=== PATIENT | female | born 1965 | race Caucasian/White ===

== ENCOUNTER 2020-06-07 02:13 | Emergency (ER) | payer OTHER ==
[~2020-06-07] VITALS: Ht 165.1 cm; Wt 86.2 kg
[~2020-06-07 02:13] MED LIST: ACEASPCAF PO; ACYCLOVIR400 MG PO; ALBU90OI INH; AMOCLA875 PO; CEFD300 PO; CLAR500CR; Cipro500 MG PO; DEXL60CA3; Flagyl500 MG PO; KETO10 PO; LANSOPRAZOLE30 MG PO; LEVFLO500 PO; Norco 5-325 Ta1 EACH PO; ONDA4ODT MM; OXYACE5T PO; PRED20 PO; PRO-AIR; Protonix40 MG PO; Symbicort 16010.2 GM INH; Zofran4 MG PO; [UNRECOGNIZED DRUG - OTHER]
[2020-06-07 02:50] LABS: Calcium, Ionized (POC) 1.18 mmol/L (1.10-1.46); Chloride (POC) 101 mmol/L (98-108); Creatinine (POC) 1.3 mg/dL (0.6-1.0); Glucose (ISTAT POC) 149 mg/dL (70-99); Hemoglobin (POC) 13.9 g/dL (12.0-16.0); Potassium (POC) 3.5 mmol/L (3.5-5.5); Sodium (POC) 140 mmol/L (135-148); Total CO2 (POC) 26 mmol/L (21-32)
[2020-06-07 02:51] LABS: BASOPHILS ABSOLUTE AUTO 0.05 K/mm3 (0.00-0.23); BASOPHILS PERCENT AUTO 0 % (0-2); EOSINOPHILS ABSOLUTE AUTO 0.18 K/mm3 (0.00-0.68); EOSINOPHILS PERCENT AUTO 1 % (0-6); Hematocrit 41.2 % (33.0-51.0); Hemoglobin 14.2 g/dL (11.5-16.0); IMMATURE GRAN ABSOLUTE AUTO 0.04 K/mm3 (0.00-0.10); IMMATURE GRAN PERCENT AUTO 0 % (0-1); LYMPHOCYTES ABSOLUTE AUTO 1.29 K/mm3 (0.84-5.20); LYMPHOCYTES PERCENT AUTO 8 % (21-46); MONOCYTES ABSOLUTE AUTO 0.86 K/mm3 (0.16-1.47); MONOCYTES PERCENT AUTO 5 % (4-13); Mean Corpuscular HGB 31.9 pg (26.0-34.0); Mean Corpuscular HGB Conc 34.5 g/dL (31.5-36.5); Mean Corpuscular Volume 93 fL (80-100); Mean Platelet Volume 8.6 fL (9.1-12.4); NEUTROPHILS ABSOLUTE AUTO 13.58 K/mm3 (1.96-9.15); NEUTROPHILS PERCENT AUTO 85 % (41-73); Platelet Count 419 K/mm3 (150-400); RDW Coefficient Variation 13.9 % (11.7-14.2); RDW Standard Deviation 47.7 fL (35.1-46.3); Red Blood Cell Count 4.45 M/mm3 (3.80-5.20)
[2020-06-07 03:11] LABS: PCO2 Arterial 36.1 mmHg (35-45); PO2 Arterial 66.8 mmHg (80-100); pH Blood Arterial 7.42 (7.35-7.45)
[2020-06-07 03:12] LABS: Alanine Aminotransfer (ALT/SGP 31 U/L (12-78); Albumin, Blood 3.9 g/dL (3.4-5.0); Alk Phos 67 U/L (50-136); Anion Gap 7 mmol/L (6-16); Aspartate Aminotrans (AST/SGOT 22 U/L (12-37); Bilirubin, Total 0.2 mg/dL (0.1-1.0); Blood Urea Nitrogen 18 mg/dL (8-24); CO2, Blood 29 mmol/L (21-32); Calcium, Blood 10.2 mg/dL (8.5-10.1); Chloride, Blood 104 mmol/L (98-108); Creatinine, Blood 1.29 mg/dL (0.40-1.00); Globulin, Blood 3.8 g/dL (2.2-4.0); Glomerular Filtration Rate 46 (60-); Glucose, Blood 144 mg/dL (70-99); Potassium, Blood 3.4 mmol/L (3.5-5.5); Sodium, Blood 140 mmol/L (136-145); Total Protein, Blood 7.7 g/dL (6.4-8.2); Troponin I <0.015 ng/mL (0.000-0.040)
[2020-06-07] MEDS ORDERED: ACYCLOVIR400 MG PO (04:33)
[2020-06-07] MEDS ORDERED: ANORO ELLIPTA1 EAC1 INH (04:33)
[2020-06-07 04:48] LABS: Source, Urine Catheter
[2020-06-07 04:54] LABS: Bilirubin, Urine Neg (Neg); Blood, Urine Neg (Neg); Glucose Qualitative, Urine Neg (Neg); Ketones, Urine Neg (Neg); Leukocyte Esterase, Urine 1+ (Neg); Nitrite, Urine Neg (Neg); Protein, Urine Neg (Neg); Specific Gravity, Urine 1.005 (1.003-1.022); Urobilinogen, Urine NORM (Normal)
[2020-06-07 05:01] LABS: Appearance, Urine Clear (Clear); Bacteria Rare /hpf; Color, Urine Yellow (P-Yellow); Red Blood Cells, Urine Not Seen /hpf (0-2); Squamous Epithelial Cells Few /hpf (Few); White Blood Cells, Urine Rare /hpf (0-5)
[2020-06-07] MEDS ORDERED: AMOCLA875 PO (05:15)
== END 2020-06-07 05:30 | disposition home or self-care (01) ==
LOC: ER 02:13
PROVIDERS: Emergency Medicine
DX: K52.9 Noninfective gastroenteritis and colitis, unspecified (principal); F17.210 Nicotine dependence, cigarettes, uncomplicated; Z79.51 Long term (current) use of inhaled steroids; Z88.1 Allergy status to other antibiotic agents; Z79.899 Other long term (current) drug therapy
CPT/HCPCS: 36415; 36600; 74176; 80047; 80053; 81001; 82803; 83605; 83690; 84484; 85014; 85025; 93005; 93010; 96374; 99284-25; J2405; J7030

== ENCOUNTER 2020-08-31 17:14 | Emergency (ER) | payer OTHER ==
[~2020-08-31] VITALS: Ht 160 cm; Wt 74.8 kg
[~2020-08-31 17:14] MED LIST changes: +ANORO ELLIPTA1 EAC1 INH
[2020-08-31] MEDS ORDERED: OMEP20ER PO (17:31)
[2020-08-31 17:33] LABS: BASOPHILS ABSOLUTE AUTO 0.05 K/mm3 (0.00-0.23); BASOPHILS PERCENT AUTO 0 % (0-2); EOSINOPHILS ABSOLUTE AUTO 0.37 K/mm3 (0.00-0.68); EOSINOPHILS PERCENT AUTO 2 % (0-6); Hematocrit 45.6 % (33.0-51.0); Hemoglobin 15.2 g/dL (11.5-16.0); IMMATURE GRAN ABSOLUTE AUTO 0.06 K/mm3 (0.00-0.10); IMMATURE GRAN PERCENT AUTO 0 % (0-1); LYMPHOCYTES ABSOLUTE AUTO 1.46 K/mm3 (0.84-5.20); LYMPHOCYTES PERCENT AUTO 8 % (21-46); MONOCYTES ABSOLUTE AUTO 1.76 K/mm3 (0.16-1.47); MONOCYTES PERCENT AUTO 10 % (4-13); Mean Corpuscular HGB 31.3 pg (26.0-34.0); Mean Corpuscular HGB Conc 33.3 g/dL (31.5-36.5); Mean Corpuscular Volume 94 fL (80-100); Mean Platelet Volume 8.6 fL (9.1-12.4); NEUTROPHILS PERCENT AUTO 80 % (41-73); Platelet Count 424 K/mm3 (150-400); RDW Coefficient Variation 13.3 % (11.7-14.2); RDW Standard Deviation 46.6 fL (35.1-46.3); Red Blood Cell Count 4.86 M/mm3 (3.80-5.20)
[2020-08-31 17:55] LABS: Alanine Aminotransfer (ALT/SGP 41 U/L (12-78); Albumin, Blood 4.1 g/dL (3.4-5.0); Albumin/Globulin Ratio 1.1 (0.8-1.8); Alk Phos 68 U/L (50-136); Anion Gap 5 mmol/L (6-16); Aspartate Aminotrans (AST/SGOT 36 U/L (12-37); Bilirubin, Total 0.2 mg/dL (0.1-1.0); Blood Urea Nitrogen 19 mg/dL (8-24); Bun/Creatinine Ratio 21.8 (12.0-20.0); CO2, Blood 26 mmol/L (21-32); Calcium, Blood 9.4 mg/dL (8.5-10.1); Chloride, Blood 110 mmol/L (98-108); Creatinine, Blood 0.87 mg/dL (0.40-1.00); Globulin, Blood 3.6 g/dL (2.2-4.0); Glomerular Filtration Rate >60 (60-); Glucose, Blood 108 mg/dL (70-99); Potassium, Blood 3.9 mmol/L (3.5-5.5); Sodium, Blood 141 mmol/L (136-145); Total Protein, Blood 7.7 g/dL (6.4-8.2); Troponin I <0.015 ng/mL (0.000-0.040)
[2020-08-31] MEDS ORDERED: ONDA4ODT MM (19:35)
== END 2020-08-31 19:46 | disposition home or self-care (01) ==
LOC: ER 17:14
PROVIDERS: Emergency Medicine
DX: K52.9 Noninfective gastroenteritis and colitis, unspecified (principal); E86.0 Dehydration; R55 Syncope and collapse; F17.210 Nicotine dependence, cigarettes, uncomplicated; Z88.1 Allergy status to other antibiotic agents; Z79.899 Other long term (current) drug therapy
CPT/HCPCS: 71045; 74177; 80053; 83880; 84484; 85025; 93005; 93010; 96361; 96374-59; 99285-25; A9270; J2405; J7030; Q9967

== ENCOUNTER 2020-10-13 07:04 | Emergency (ER) | payer OTHER ==
[~2020-10-13] VITALS: Ht 160 cm; Wt 72.6 kg
[~2020-10-13 07:04] MED LIST changes: +OMEP20ER PO
[2020-10-13] MEDS ORDERED: ASPI81CH PO (07:19)
[2020-10-13 07:55] LABS: BASOPHILS ABSOLUTE AUTO 0.05 K/mm3 (0.00-0.23); BASOPHILS PERCENT AUTO 0 % (0-2); EOSINOPHILS ABSOLUTE AUTO 0.37 K/mm3 (0.00-0.68); EOSINOPHILS PERCENT AUTO 2 % (0-6); Hematocrit 41.4 % (33.0-51.0); Hemoglobin 13.8 g/dL (11.5-16.0); IMMATURE GRAN ABSOLUTE AUTO 0.07 K/mm3 (0.00-0.10); IMMATURE GRAN PERCENT AUTO 0 % (0-1); LYMPHOCYTES ABSOLUTE AUTO 1.14 K/mm3 (0.84-5.20); LYMPHOCYTES PERCENT AUTO 6 % (21-46); MONOCYTES ABSOLUTE AUTO 1.07 K/mm3 (0.16-1.47); MONOCYTES PERCENT AUTO 5 % (4-13); Mean Corpuscular HGB Conc 33.3 g/dL (31.5-36.5); Mean Corpuscular Volume 96 fL (80-100); Mean Platelet Volume 8.6 fL (9.1-12.4); NEUTROPHILS ABSOLUTE AUTO 16.94 K/mm3 (1.96-9.15); NEUTROPHILS PERCENT AUTO 86 % (41-73); Platelet Count 401 K/mm3 (150-400); RDW Coefficient Variation 14.1 % (11.7-14.2); RDW Standard Deviation 50.4 fL (35.1-46.3); Red Blood Cell Count 4.31 M/mm3 (3.80-5.20); White Blood Cell Count 19.64 K/mm3 (4.00-11.30)
[2020-10-13 08:23] LABS: Alanine Aminotransfer (ALT/SGP 36 U/L (12-78); Albumin, Blood 3.3 g/dL (3.4-5.0); Albumin/Globulin Ratio 0.9 (0.8-1.8); Alk Phos 53 U/L (50-136); Anion Gap 10 mmol/L (6-16); Aspartate Aminotrans (AST/SGOT 24 U/L (12-37); Bilirubin, Total 0.3 mg/dL (0.1-1.0); Blood Urea Nitrogen 20 mg/dL (8-24); Bun/Creatinine Ratio 20.3 (12.0-20.0); CO2, Blood 21 mmol/L (21-32); Calcium, Blood 9.5 mg/dL (8.5-10.1); Chloride, Blood 109 mmol/L (98-108); Creatinine, Blood 0.99 mg/dL (0.40-1.00); Globulin, Blood 3.8 g/dL (2.2-4.0); Glomerular Filtration Rate >60 (60-); Glucose, Blood 116 mg/dL (70-99); Potassium, Blood 4.2 mmol/L (3.5-5.5); Sodium, Blood 140 mmol/L (136-145); Total Protein, Blood 7.1 g/dL (6.4-8.2); Troponin I <0.015 ng/mL (0.000-0.040)
[2020-10-13 08:39] LABS: Source, Urine Clean Catch
[2020-10-13 08:48] LABS: Bilirubin, Urine Neg (Neg); Blood, Urine 2+ (Neg); Glucose Qualitative, Urine Neg (Neg); Ketones, Urine 1+ (Neg); Leukocyte Esterase, Urine 1+ (Neg); Nitrite, Urine Neg (Neg); Protein, Urine 3+ (Neg); Specific Gravity, Urine 1.015 (1.003-1.022); Urobilinogen, Urine 1+ (Normal); pH, Urine 6.5 (5.0-8.0)
[2020-10-13 08:54] LABS: Appearance, Urine Hazy (Clear); Color, Urine Yellow (P-Yellow)
[2020-10-13 08:56] LABS: Bacteria Many /hpf; Red Blood Cells, Urine 0-2 /hpf (0-2); Squamous Epithelial Cells Few /hpf (Few)
[2020-10-13 08:57] LABS: Amorphous Light (0-Heavy); Mucus Light (0-Heavy)
[2020-10-13] MEDS ORDERED: PROM25 PO (09:47)
[2020-10-13] MEDS ORDERED: NITR100CA PO (09:47)
== END 2020-10-13 09:55 | disposition home or self-care (01) ==
LOC: ER 07:04
PROVIDERS: Emergency Medicine
DX: R10.9 Unspecified abdominal pain (principal); R11.2 Nausea with vomiting, unspecified; R19.7 Diarrhea, unspecified; F17.210 Nicotine dependence, cigarettes, uncomplicated; Z79.82 Long term (current) use of aspirin
CPT/HCPCS: 36415; 74022; 80053; 81001; 83690; 84484; 85025; 87086; 93005; 93010; 96361; 96374; 99285-25; A9270; J2405; J7120

== ENCOUNTER 2020-12-26 08:23 | Day surgery (SDC) | payer OTHER ==
[~2020-12-26] VITALS: Ht 160 cm; Wt 67.5 kg
[~2020-12-26 08:23] MED LIST changes: +ASPI81CH PO; +NITR100CA PO; +PROM25 PO
[2020-12-26] MEDS ORDERED: ESOM20 (08:57)
[2020-12-26] MEDS ORDERED: [UNRECOGNIZED DRUG - OTHER] (08:58)
[2020-12-26] MEDS ORDERED: ALBU90OI6 (08:58)
[2020-12-26] MEDS ORDERED: AMOCLA250S (08:58)
== END 2020-12-26 10:25 | disposition home or self-care (01) ==
LOC: ORSCSDS 08:23
PROVIDERS: Internal Medicine Gastroenterology
PROC: 0DBP8ZX Excision of Rectum, Via Natural or Artificial Opening Endoscopic, Diagnostic (ICD-10-PCS; principal; 2020-12-26 09:45)
PROC: 0DBE8ZX Excision of Large Intestine, Via Natural or Artificial Opening Endoscopic, Diagnostic (ICD-10-PCS; principal; 2020-12-26 09:45)
DX: R19.7 Diarrhea, unspecified (principal); R93.89 Abnormal findings on diagnostic imaging of other specified body structures; K52.831 Collagenous colitis; K62.1 Rectal polyp; K64.4 Residual hemorrhoidal skin tags; E78.00 Pure hypercholesterolemia, unspecified; Z79.899 Other long term (current) drug therapy
CPT/HCPCS: 88305; J2704; J7120

== ENCOUNTER 2021-05-11 07:31 | Inpatient (IN) | payer OTHER ==
[~2021-05-11] VITALS: Ht 160 cm; Wt 69.4 kg
[~2021-05-11 07:31] MED LIST changes: +ALBU90OI6 INH; +AMOCLA250S; +ESOM20; +[UNRECOGNIZED DRUG - OTHER]
[2021-05-11 07:48] LABS: BASOPHILS ABSOLUTE AUTO 0.05 K/mm3 (0.00-0.23); BASOPHILS PERCENT AUTO 0 % (0-2); EOSINOPHILS ABSOLUTE AUTO 0.26 K/mm3 (0.00-0.68); EOSINOPHILS PERCENT AUTO 1 % (0-6); Hematocrit 37.8 % (33.0-51.0); Hemoglobin 13.1 g/dL (11.5-16.0); IMMATURE GRAN ABSOLUTE AUTO 0.11 K/mm3 (0.00-0.10); IMMATURE GRAN PERCENT AUTO 1 % (0-1); LYMPHOCYTES PERCENT AUTO 12 % (21-46); MONOCYTES ABSOLUTE AUTO 0.73 K/mm3 (0.16-1.47); MONOCYTES PERCENT AUTO 4 % (4-13); Mean Corpuscular HGB 32.3 pg (26.0-34.0); Mean Corpuscular HGB Conc 34.7 g/dL (31.5-36.5); Mean Corpuscular Volume 93 fL (80-100); Mean Platelet Volume 8.6 fL (9.1-12.4); NEUTROPHILS ABSOLUTE AUTO 16.76 K/mm3 (1.96-9.15); NEUTROPHILS PERCENT AUTO 82 % (41-73); Platelet Count 418 K/mm3 (150-400); RDW Coefficient Variation 14.2 % (11.7-14.2); Red Blood Cell Count 4.05 M/mm3 (3.80-5.20); White Blood Cell Count 20.41 K/mm3 (4.00-11.30)
[2021-05-11 08:04] LABS: Alanine Aminotransfer (ALT/SGP 26 U/L (12-78); Albumin, Blood 3.1 g/dL (3.4-5.0); Albumin/Globulin Ratio 0.9 (0.8-1.8); Alk Phos 46 U/L (50-136); Anion Gap 7 mmol/L (6-16); Aspartate Aminotrans (AST/SGOT 18 U/L (12-37); Bilirubin, Total 0.4 mg/dL (0.1-1.0); Blood Urea Nitrogen 17 mg/dL (8-24); Bun/Creatinine Ratio 21.6 (12.0-20.0); CO2, Blood 27 mmol/L (21-32); Calcium, Blood 9.5 mg/dL (8.5-10.1); Chloride, Blood 106 mmol/L (98-108); Creatinine, Blood 0.79 mg/dL (0.40-1.00); Globulin, Blood 3.4 g/dL (2.2-4.0); Glomerular Filtration Rate >60 (60-); Glucose, Blood 107 mg/dL (70-99); Potassium, Blood 3.8 mmol/L (3.5-5.5); Sodium, Blood 140 mmol/L (136-145); Total Protein, Blood 6.5 g/dL (6.4-8.2)
[2021-05-11] MEDS ORDERED: BUDESONIDE1 MG/2 M5 INH (09:32)
[2021-05-11 09:59] LABS: SARS-Cov-2 (COVID-19) PCR, MMC NEGATIVE (NEGATIVE)
--- NOTE | 2021-05-11 11:33 | NUR ---
05/11/21 1133 Hannah Moreland PATIENT IS ON SCHEDULED ANTIBIOTICS.
--- NOTE | 2021-05-11 16:11 | NUR ---
1500- PT ARRIVED TO ROOM ON OWN BED, DROWSY BUT RESPONDS TO VERBAL STIMULI AND ANSWERS CORRECTLY. POST OP/EPIDURAL VS COMMENCED AND STABLE. EPIDURAL VISUALIZED AND WNL, DRESSING C/D/I. PT ABLE TO MOVE ALL FOUR LIMBS, RATES PAIN IN ABDOMENT AT 2-3/10; C/O PAIN IN HER NOSE AND BEHIND HER L EYE. NG TUBE AFFIXED TO L NARE, STRICT ORDERS TO LEAVE IN AND NOT MANIPULATE, INTERMITTENT LOW SUCTION. PT'S IN ROOM WITH PT. BED IN LOWEST POSITION, BED RAILS UP X 2, PT PROVIDED WITH CALL LIGHT, CRUTCHING CONTRACTOR BUTTON; PT AND PROVIDED WITH EDUCATION ON USE OF BOTH.
[2021-05-12 04:15] LABS: Hematocrit 39.1 % (33.0-51.0); Hemoglobin 13.5 g/dL (11.5-16.0); Mean Corpuscular HGB 31.8 pg (26.0-34.0); Mean Corpuscular HGB Conc 34.5 g/dL (31.5-36.5); Mean Corpuscular Volume 92 fL (80-100); Platelet Count 423 K/mm3 (150-400); RDW Coefficient Variation 14.3 % (11.7-14.2); RDW Standard Deviation 48.5 fL (35.1-46.3); Red Blood Cell Count 4.24 M/mm3 (3.80-5.20); White Blood Cell Count 24.28 K/mm3 (4.00-11.30)
[2021-05-12 04:34] LABS: BAND PERCENT MAN 13 % (0-8); BASOPHILS PERCENT MAN 0 % (0-2); EOSINOPHILS PERCENT MAN 0 % (0-6); LYMPHOCYTES ABSOLUTE MAN 1.69 K/mm3 (0.84-5.20); LYMPHOCYTES PERCENT MAN 7 % (21-46); MONOCYTES ABSOLUTE MAN 0.72 K/mm3 (0.16-1.47); MONOCYTES PERCENT MAN 3 % (4-13); NEUTROPHILS ABSOLUTE MAN 21.85 K/mm3 (1.96-9.15); SEG NEUTROPHILS PERCENT MAN 77 % (41-73); TOTAL CELLS COUNTED 100
[2021-05-12 04:41] LABS: Anion Gap 7 mmol/L (6-16); Blood Urea Nitrogen 13 mg/dL (8-24); Bun/Creatinine Ratio 15.5 (12.0-20.0); CO2, Blood 27 mmol/L (21-32); Chloride, Blood 105 mmol/L (98-108); Creatinine, Blood 0.84 mg/dL (0.40-1.00); Glomerular Filtration Rate >60 (60-); Glucose, Blood 132 mg/dL (70-99); Potassium, Blood 4.3 mmol/L (3.5-5.5); Sodium, Blood 139 mmol/L (136-145)
--- NOTE | 2021-05-12 07:06 | NUR ---
PT IS A/OX3. ABLE TO MAKE HER NEEDS KNOWN. MCCANN CATHETER PATENT, DRAINING CLEAR YELLOW URINE. DRNG BAG TO GRAVITY AND OFF FLOOR. MIDLINE INCISION WITH CHARLINE. CHARLINE WORKING WELL. BINDER IN PLACE. FENTANYL EPIDURAL IN PLACE. DRSG CDI. HOURLY VS/DERMATOME/DRSG CHECKS DONE. PT REMINDED TO USE EPIDURAL BUTTON FOR PAIN RELIEF. STRICT NPO. NGT TO RT NARE AND TO LIS. NO EFFLUENT IN CANNISTER. MEDICATED FOR NAUSEA PER EMAR.
--- NOTE | 2021-05-12 07:50 | NUR ---
PT REPORTING NAUSEA, GAVE PHENERGEN PER EMAR. ASKED SENSATION QUESTION BUT PT VERY SLEEPY. PT REPORTED THAT SHE HAD FULL SENSATION AT THAT TIME, KEPT FALLING ASLEEP WHILE QUESTIONS WERE BEING ASKED. VITALS TAKEN AT THAT TIME, OXYGEN SATURATION 96% ON ROOM AIR.
[2021-05-12 10:16] LABS: Hematocrit 32.6 % (33.0-51.0); Hemoglobin 11.1 g/dL (11.5-16.0)
[2021-05-12] MEDS ORDERED: BUDESONIDE EC3 M5 (10:34)
--- NOTE | 2021-05-12 11:14 | NUR ---
SPOKE WITH ANESTHESIOLOGIST. NOTIFIED HIM OF RAPID CALLED AND BLOOD PRESSURES T/O. ORDERS RECIEVED TO DECREASE RATE TO 4ML/HR. PT CURRENTLY REPORTS PAIN OF 1/10 AND DENIES NUMBNESS ANYWHERE.
--- NOTE | 2021-05-12 11:31 | NUR ---
PT CURRENTLY SLEEPING WITH RESPIRATIONS EVEN. SHE CONTINUES TO DENY PAIN SINCE RATE DROPPED TO 4ML/HR.
--- NOTE | 2021-05-12 11:53 | NUR ---
WENT INTO PT ROOM AT APPROX 0935 TO TAKE PT VITALS. PT STARTED COMPLAINING OF CHEST PAIN. VITALS TAKEN AND BP WAS 87/46. PT ALERT AT THAT TIME. CALLED [facility]COSTA RN TO COME TO RM. ANOTHER BP TAKEN, PT HYPOTENSIVE AND DIAPHORETIC. SPRAY DRIER OPERATOR HELPER CALLED TO COME TO RM. PT NON-RESPONSIVE, RAPID RESPONSE CALLED. EKG DONE AT THIS TIME. DR NOTIFIED AT THIS TIME, HOSPITALIST CONSULT CALLED MD TO ROOM.
[2021-05-12 15:40] LABS: Hematocrit 30.1 % (33.0-51.0); Hemoglobin 10.6 g/dL (11.5-16.0)
--- NOTE | 2021-05-12 17:26 | NUR ---
SHIFT SUMMARY POD1 EX LAP, CONVERTED TO OPEN. SINCE RAPID RESPONSE, PT HAS HAD STABLE VITAL SIGNS. ALERT AND ORIENTED BUT SLEEPY. EPIDERAL IN PLACE FOR PAIN MANAGEMENT. VITAL SIGNS STABLE. MIDLINE CHARLINE DRESSING C/D/I. BILATERAL SCDS IN PLACE. TELE MONITOR ON. POWER GLIDE PLACED IN UPPER RIGHT ARM. MCCANN PATENT DRAINING CLEAR YELLOW URINE. TRENDING LACTIC LEVELS ARE BEING DRAWN. WILL REPORT TO ONCOMING RN.
[2021-05-12 21:47] LABS: Hematocrit 27.6 % (33.0-51.0); Hemoglobin 9.9 g/dL (11.5-16.0)
[2021-05-13 04:43] LABS: BASOPHILS ABSOLUTE AUTO 0.03 K/mm3 (0.00-0.23); BASOPHILS PERCENT AUTO 0 % (0-2); EOSINOPHILS ABSOLUTE AUTO 0.04 K/mm3 (0.00-0.68); EOSINOPHILS PERCENT AUTO 0 % (0-6); Hematocrit 25.6 % (33.0-51.0); Hemoglobin 8.7 g/dL (11.5-16.0); IMMATURE GRAN ABSOLUTE AUTO 0.08 K/mm3 (0.00-0.10); IMMATURE GRAN PERCENT AUTO 0 % (0-1); LYMPHOCYTES ABSOLUTE AUTO 1.09 K/mm3 (0.84-5.20); LYMPHOCYTES PERCENT AUTO 6 % (21-46); MONOCYTES ABSOLUTE AUTO 0.95 K/mm3 (0.16-1.47); MONOCYTES PERCENT AUTO 5 % (4-13); Mean Corpuscular HGB 31.9 pg (26.0-34.0); Mean Corpuscular Volume 94 fL (80-100); Mean Platelet Volume 9.3 fL (9.1-12.4); NEUTROPHILS ABSOLUTE AUTO 16.33 K/mm3 (1.96-9.15); NEUTROPHILS PERCENT AUTO 88 % (41-73); Platelet Count 336 K/mm3 (150-400); RDW Coefficient Variation 14.8 % (11.7-14.2); RDW Standard Deviation 50.6 fL (35.1-46.3); Red Blood Cell Count 2.73 M/mm3 (3.80-5.20); White Blood Cell Count 18.52 K/mm3 (4.00-11.30)
[2021-05-13 05:05] LABS: Alanine Aminotransfer (ALT/SGP 213 U/L (12-78); Albumin/Globulin Ratio 0.6 (0.8-1.8); Alk Phos 50 U/L (50-136); Anion Gap 6 mmol/L (6-16); Aspartate Aminotrans (AST/SGOT 187 U/L (12-37); Bilirubin, Total 0.5 mg/dL (0.1-1.0); Blood Urea Nitrogen 18 mg/dL (8-24); CO2, Blood 26 mmol/L (21-32); Calcium, Blood 8.5 mg/dL (8.5-10.1); Chloride, Blood 108 mmol/L (98-108); Creatinine, Blood 0.75 mg/dL (0.40-1.00); Globulin, Blood 3.6 g/dL (2.2-4.0); Glomerular Filtration Rate >60 (60-); Glucose, Blood 125 mg/dL (70-99); Potassium, Blood 3.6 mmol/L (3.5-5.5); Sodium, Blood 140 mmol/L (136-145); Total Protein, Blood 5.6 g/dL (6.4-8.2)
[2021-05-13 14:36] LABS: Percent Saturation 10.1 % (15.0-50.0)
[2021-05-13 15:59] LABS: Hematocrit 23.3 % (33.0-51.0); Hemoglobin 8.1 g/dL (11.5-16.0)
[2021-05-14 04:22] LABS: Hematocrit 20.7 % (33.0-51.0); Hemoglobin 7.2 g/dL (11.5-16.0); Mean Corpuscular HGB 32.7 pg (26.0-34.0); Mean Corpuscular HGB Conc 34.8 g/dL (31.5-36.5); Mean Corpuscular Volume 94 fL (80-100); Mean Platelet Volume 9.1 fL (9.1-12.4); Platelet Count 281 K/mm3 (150-400); RDW Coefficient Variation 14.7 % (11.7-14.2); RDW Standard Deviation 51.5 fL (35.1-46.3)
[2021-05-14 04:47] LABS: Alanine Aminotransfer (ALT/SGP 168 U/L (12-78); Albumin, Blood 1.8 g/dL (3.4-5.0); Albumin/Globulin Ratio 0.5 (0.8-1.8); Alk Phos 45 U/L (50-136); Anion Gap 5 mmol/L (6-16); Aspartate Aminotrans (AST/SGOT 87 U/L (12-37); Bilirubin, Total 0.5 mg/dL (0.1-1.0); Blood Urea Nitrogen 16 mg/dL (8-24); Bun/Creatinine Ratio 21.5 (12.0-20.0); CO2, Blood 25 mmol/L (21-32); Calcium, Blood 8.2 mg/dL (8.5-10.1); Chloride, Blood 111 mmol/L (98-108); Creatinine, Blood 0.74 mg/dL (0.40-1.00); Globulin, Blood 3.7 g/dL (2.2-4.0); Glomerular Filtration Rate >60 (60-); Glucose, Blood 95 mg/dL (70-99); Potassium, Blood 3.1 mmol/L (3.5-5.5); Sodium, Blood 141 mmol/L (136-145); Total Protein, Blood 5.5 g/dL (6.4-8.2)
--- NOTE | 2021-05-14 06:50 | NUR ---
PT IS A/OX3. MORE ALERT AND LUCID TONIGHT COMPARED TO LAST TWO NIGHTS. NO EVENTS OVER NIGHT. SHE IS POD 3 FOR NADIA EN Y FOR PNEUMOPERITONEUM. ABD MIDLINE INCISION W/CHARLINE. CHARLINE WORKING WELL. ABD BINDER IN PLACE. TELE: SR. MCCANN PATENT, DRAINING CLEAR/YELLOW URINE. DRNG BAG TO GRAVITY AND OFF FLOOR. MCCANN ATTACHED TO RT MEDIAL THIGH. STRICT NPO. NGT TO RT NARE AND SET TO LIS. TOTAL OF 450ML RED COFFEE GROUND LIKE EFFLUENT FROM NGT. ABD SOFT, TENDER. FENTANTYL EPIDURAL IN PLACE TO MANAGE PAIN. NEW FENTANYL BAG. POWERGLIDE TO RUE PATENT.
--- NOTE | 2021-05-14 09:46 | NUR ---
ANAESTHESOLOGIST MARJORIE'D EPIDURAL AT APPROXIMATELY 0830.
--- NOTE | 2021-05-14 13:26 | NUR ---
NG TUBE UPON ENTERING ROOM, FOUND NG TUBE HAD SLIPPED OUT APPROXIMATELY [address] LARKIN FOR ORDERS. ORDER OBTAINED TO DR LUCI HARPER; COMPLETED. PT TOLERATED FAIRLY WELL.
--- NOTE | 2021-05-14 17:47 | NUR ---
SUMMARY PT'S EPIDURAL DC'D THIS AM. PAIN HAS INCREASED T/O DAY W/IV FENTANYL. SPOKE TO DR LARKIN AND OBTAINED ORDER FOR IV DILAUDID. PT REPORTED MODERATE PAIN RELIEF AFTER FIRST DOSE. PT ALSO C/O OF NAUSEA OFF AND ON T/O SHIFT; MEDICATED PER ORDERS. PT'S NG TUBE CAME UNSECURED AND SLIPPED OUT APPROXIMATELY [address] LARKIN FOR INSTRUCTION; OBTAINED ORDER TO DC. PT REC'D TWO UNITS OF PRBCS. ALSO REC'D KRIDERS. SALINE LOCKED AT THIS TIME. VSS. DC'D MCCANN CATH THIS EVENING AND PT IMMEDIATELY GOT UP TO BSC AND VOIDED 50 ML YELLOW URINE. CHANGED LINENS. NOW BACK TO BED. S.O. AT BEDSIDE. CALL LIGHT IN REACH.
[2021-05-14 19:35] LABS: Hematocrit 28.6 % (33.0-51.0); Hemoglobin 9.9 g/dL (11.5-16.0)
--- NOTE | 2021-05-15 06:39 | NUR ---
PT IS A/OX3. MORE ALERT, TALKATIVE. IS ABLE TO MAKE HER NEEDS KNOWN. NO EVENTS OVERNIGHT. NPO EXCEPT ICE CHIPS. TOLERATING ICE CHIPS. MCCANN WAS D/C'D YESTERDAY. VOIDING WELL. USES BSC. TELE: SR. CONT PULSE OX IN PLACE. OXYGEN AT 3L PER NC. SOB WHILE TRANSFERRING FROM BED TO BSC. PT IS A SMOKER, CONT TO REFUSE NICOTINE REPLACEMENT. FENT EPIDURAL WAS D/C'D YESTERDAY. PRN IV DILAUDID MANAGING PAIN WELL. ABD MIDLINE INCISION WITH CHARLINE. CHARLINE WORKING WELL, NO AIR LEAKS/COMPRESSED/GREEN LIGHT ON. ABD BINDER IN PLACE. BT'S POS, HYPO. NOT PASSING GAS.
[2021-05-15 09:34] LABS: Hematocrit 28.9 % (33.0-51.0); Mean Corpuscular HGB 31.5 pg (26.0-34.0); Mean Corpuscular HGB Conc 34.6 g/dL (31.5-36.5); Mean Corpuscular Volume 91 fL (80-100); Mean Platelet Volume 8.8 fL (9.1-12.4); Platelet Count 305 K/mm3 (150-400); RDW Coefficient Variation 16.1 % (11.7-14.2); RDW Standard Deviation 54.4 fL (35.1-46.3); Red Blood Cell Count 3.17 M/mm3 (3.80-5.20); White Blood Cell Count 15.81 K/mm3 (4.00-11.30)
[2021-05-15 09:53] LABS: Alanine Aminotransfer (ALT/SGP 121 U/L (12-78); Albumin, Blood 2.2 g/dL (3.4-5.0); Albumin/Globulin Ratio 0.6 (0.8-1.8); Alk Phos 53 U/L (50-136); Anion Gap 5 mmol/L (6-16); Aspartate Aminotrans (AST/SGOT 35 U/L (12-37); Bilirubin, Total 0.7 mg/dL (0.1-1.0); Blood Urea Nitrogen 21 mg/dL (8-24); Bun/Creatinine Ratio 30.8 (12.0-20.0); CO2, Blood 25 mmol/L (21-32); Calcium, Blood 8.8 mg/dL (8.5-10.1); Chloride, Blood 113 mmol/L (98-108); Creatinine, Blood 0.68 mg/dL (0.40-1.00); Glomerular Filtration Rate >60 (60-); Glucose, Blood 85 mg/dL (70-99); Potassium, Blood 3.4 mmol/L (3.5-5.5); Sodium, Blood 143 mmol/L (136-145); Total Protein, Blood 6.2 g/dL (6.4-8.2)
--- NOTE | 2021-05-16 06:35 | NUR ---
PT IS A/OX3. ABLE TO MAKE HER NEEDS KNOWN. NO EVENTS OVER NIGHT. TOLERATING CLEAR LIQUIDS WELL. MEDICATED FOR INTERMITTENT NAUSEA WITH PRN MEDS PER EMAR. BT'S POS, HYPO. PASSING GAS. NO BM. CONTINOUS PULSE OX IN PLACE. DESATS ON RA OR 1L OXYGEN WHILE SLEEPING. OXYGEN AT 2L PER PER NC WHILE SLEEPING. HAS PRODUCTIVE COUGH WITH WHITE SPUTUM. GAVE PT I/S AND INSTRUCTED HOW TO USE; WOULD NOT RETURN DEMO. MIDLINE ABD INCISION WITH CHARLINE DRSG. CHARLINE WORKING WELL, COMPRESSED, NO AIR LEAKS WITH GREEN LIGHT ON. BINDER ON. 1PA W/FWW W/TRANSFER FROM BED TO BATHROOM OR BSC. GENERALIZED WEAKNESS.
[2021-05-17 04:08] LABS: BASOPHILS ABSOLUTE AUTO 0.04 K/mm3 (0.00-0.23); BASOPHILS PERCENT AUTO 0 % (0-2); EOSINOPHILS ABSOLUTE AUTO 0.46 K/mm3 (0.00-0.68); EOSINOPHILS PERCENT AUTO 3 % (0-6); Hematocrit 28.3 % (33.0-51.0); Hemoglobin 9.8 g/dL (11.5-16.0); IMMATURE GRAN ABSOLUTE AUTO 0.11 K/mm3 (0.00-0.10); IMMATURE GRAN PERCENT AUTO 1 % (0-1); LYMPHOCYTES ABSOLUTE AUTO 1.34 K/mm3 (0.84-5.20); LYMPHOCYTES PERCENT AUTO 8 % (21-46); MONOCYTES ABSOLUTE AUTO 1.27 K/mm3 (0.16-1.47); MONOCYTES PERCENT AUTO 8 % (4-13); Mean Corpuscular HGB 31.7 pg (26.0-34.0); Mean Corpuscular HGB Conc 34.6 g/dL (31.5-36.5); Mean Corpuscular Volume 92 fL (80-100); NEUTROPHILS ABSOLUTE AUTO 13.08 K/mm3 (1.96-9.15); NEUTROPHILS PERCENT AUTO 80 % (41-73); Platelet Count 305 K/mm3 (150-400); RDW Coefficient Variation 14.9 % (11.7-14.2); RDW Standard Deviation 49.9 fL (35.1-46.3); Red Blood Cell Count 3.09 M/mm3 (3.80-5.20)
[2021-05-17 04:24] LABS: Anion Gap 4 mmol/L (6-16); Blood Urea Nitrogen 11 mg/dL (8-24); Bun/Creatinine Ratio 19.5 (12.0-20.0); CO2, Blood 30 mmol/L (21-32); Calcium, Blood 8.4 mg/dL (8.5-10.1); Chloride, Blood 105 mmol/L (98-108); Creatinine, Blood 0.56 mg/dL (0.40-1.00); Glomerular Filtration Rate >60 (60-); Glucose, Blood 113 mg/dL (70-99); Potassium, Blood 2.9 mmol/L (3.5-5.5); Sodium, Blood 139 mmol/L (136-145)
--- NOTE | 2021-05-17 06:07 | NUR ---
PT FELT "CHEST TIGHTNESS" AT CHANGE OF SHIFT. GIVEN BREATHING TX PER RT. SYMPTOMS RESOLVED. LS CLEAR THROUGHOUT. ON 3L NC O2. RA AT BASELINE. ABD BINDER IN PLACE. MIDLINE CHARLINE DSG IN PLACE. PAIN MANAGED THROUGHOUT SHIFT W/ ORDERED PAIN MEDICATION. WBC 16.3. PT STATED AT 0545, SHE FELT "LIKE SHE WAS GETTING PNA" DENIED CURRENT SYMPTOMS OF SOB/CHEST TIGHTNESS. RN EDUCATED PT OF INCENTIVE SPIROMETER AND AMBULATION. PT REFUSED IS, STATED "IT HURTS MY LUNGS TO USE THE IS". FULL LIQUIDS CONT.
--- NOTE | 2021-05-17 23:16 | NUR ---
PT CONTINUALLY REMOVING NC AND TAKING OFF CONTINUOUS PULSE OX MONITOR. PT CURRENTLY ON 3L NC O2; O2 SATS AT 89-90%. PT IS BECOMING FRUSTRATED AT PULSE OX MACHINGE CONTINUALLY BEEPING. PT EDUCATED ABOUT CURRENT OXYGENATION NEEDS, RT THERAPY, IS, AND LS CLEAR/DIMINISHED. PT REEDUCATED TO STOP TAKING OFF NC AND IF MACHINE BEEPS TO LOOK AT OXYGENATION SAT AND TAKE SEVERAL DEEP BREATHS. PT THREATENED TO REMOVE PULSE OX AND LEAVE HOSPITAL. RN STATED SHE CAN REFUSE, BUT THAT IT IS IN HER BEST INTEREST TO KEEP NC ON AND MONITOR PULSE OX. WHILE IN ROOM PT SAT'S AT 89%, NC TURNED FROM 3L TO 4L. RN REQUESTED PT NOTIFY NURSE IF SHE REFUSES PULSE OX AND/OR NC O2 AND RN WOULD NEED TO NOTIFY PHYSICIAN.
[2021-05-18 04:25] LABS: BASOPHILS ABSOLUTE AUTO 0.05 K/mm3 (0.00-0.23); BASOPHILS PERCENT AUTO 0 % (0-2); EOSINOPHILS ABSOLUTE AUTO 0.46 K/mm3 (0.00-0.68); EOSINOPHILS PERCENT AUTO 3 % (0-6); Hematocrit 27.6 % (33.0-51.0); Hemoglobin 9.2 g/dL (11.5-16.0); Mean Corpuscular HGB 30.8 pg (26.0-34.0); Mean Corpuscular HGB Conc 33.3 g/dL (31.5-36.5); Mean Corpuscular Volume 92 fL (80-100); Mean Platelet Volume 9.4 fL (9.1-12.4); Platelet Count 335 K/mm3 (150-400); RDW Coefficient Variation 14.6 % (11.7-14.2); RDW Standard Deviation 49.3 fL (35.1-46.3); Red Blood Cell Count 2.99 M/mm3 (3.80-5.20); White Blood Cell Count 14.15 K/mm3 (4.00-11.30)
[2021-05-18 04:26] LABS: IMMATURE GRAN ABSOLUTE AUTO 0.13 K/mm3 (0.00-0.10); IMMATURE GRAN PERCENT AUTO 1 % (0-1); LYMPHOCYTES PERCENT AUTO 13 % (21-46); MONOCYTES ABSOLUTE AUTO 1.13 K/mm3 (0.16-1.47); MONOCYTES PERCENT AUTO 8 % (4-13); NEUTROPHILS ABSOLUTE AUTO 10.48 K/mm3 (1.96-9.15); NEUTROPHILS PERCENT AUTO 74 % (41-73)
[2021-05-18 04:50] LABS: Alanine Aminotransfer (ALT/SGP 53 U/L (12-78); Albumin, Blood 1.9 g/dL (3.4-5.0); Albumin/Globulin Ratio 0.5 (0.8-1.8); Alk Phos 57 U/L (50-136); Anion Gap 7 mmol/L (6-16); Aspartate Aminotrans (AST/SGOT 23 U/L (12-37); Bilirubin, Total 0.7 mg/dL (0.1-1.0); Blood Urea Nitrogen 9 mg/dL (8-24); Bun/Creatinine Ratio 15.7 (12.0-20.0); CO2, Blood 28 mmol/L (21-32); Calcium, Blood 8.5 mg/dL (8.5-10.1); Chloride, Blood 102 mmol/L (98-108); Creatinine, Blood 0.57 mg/dL (0.40-1.00); Globulin, Blood 3.8 g/dL (2.2-4.0); Glomerular Filtration Rate >60 (60-); Glucose, Blood 106 mg/dL (70-99); Potassium, Blood 2.7 mmol/L (3.5-5.5); Sodium, Blood 137 mmol/L (136-145); Total Protein, Blood 5.7 g/dL (6.4-8.2)
--- NOTE | 2021-05-18 06:24 | NUR ---
VSS. PAIN MANAGED WITH ORDERED PAIN MEDICATION-SEE EMAR. PT C/O GAS PAIN. AMBULATED W/ PT TWICE DURING SHIFT. MIDLINE CHARLINE DRESSING IN PLACE. PLEASE SEE PREVIOUS NURSING NOTE IN REGARDS TO OXYGENATION. PT CURRENTLY ON 3.5L NC O2. CONT PULSE OX SATTING 92%. WILL ATTEMPT TO WEAN PT THROUGH SHIFT. PT EDUCATED THOROUGHLY ABOUT RESPIRATORY STATUS, RT AND OXYGENATION.
--- NOTE | 2021-05-18 17:36 | NUR ---
PATIENT CURRENTLY SITTING UP IN BED EATING HER MEAL. TOLERATING PO WELL. ADVANCED DIET TO SOFT/GROUND MEAT DIET. PAIN HAS BEEN MANAGED WITH MOSTLY PO PAIN MEDS TODAY. NO SIGNS OR SYMPTOMS ACUTE DISTRESS NOTED. POTASSIUM REPLACED VIA IV TODAY, TOLERATED WELL. UP AND AMBULATED HALLS TODAY. PATIENT HAD A BM WELL. O2 HAS BEEN WEANED TO 1L PER NC TODAY MAINTAINING O2 SATS AT 91-93%. CALL LIGHT AND WATER IN EASY REACH. HAS VISITER AT BEDSIDE AT THIS TIME. WILL MONITOR.
--- NOTE | 2021-05-19 06:03 | NUR ---
PT in bed at this time where she remains much of the night and is resting quietly in stable. Assisted with care and ADLs, has reported abd pain and discomfort and was medicated with PRN pain med orally, has since verbalized relief. Dressing to abd assessed and is patent, assisted with bathroom and toileting needs. Her call barnett was placed near her and reminded to call for help when assistance is needed as she is monitored.
[2021-05-19 08:36] LABS: BASOPHILS ABSOLUTE AUTO 0.05 K/mm3 (0.00-0.23); BASOPHILS PERCENT AUTO 0 % (0-2); EOSINOPHILS ABSOLUTE AUTO 0.55 K/mm3 (0.00-0.68); EOSINOPHILS PERCENT AUTO 5 % (0-6); Hematocrit 27.4 % (33.0-51.0); Hemoglobin 9.7 g/dL (11.5-16.0); Mean Corpuscular HGB 31.9 pg (26.0-34.0); Mean Corpuscular HGB Conc 35.4 g/dL (31.5-36.5); Mean Corpuscular Volume 90 fL (80-100); Mean Platelet Volume 9.1 fL (9.1-12.4); Platelet Count 415 K/mm3 (150-400); RDW Coefficient Variation 14.1 % (11.7-14.2); RDW Standard Deviation 46.9 fL (35.1-46.3); Red Blood Cell Count 3.04 M/mm3 (3.80-5.20); White Blood Cell Count 12.26 K/mm3 (4.00-11.30)
[2021-05-19 08:44] LABS: IMMATURE GRAN ABSOLUTE AUTO 0.08 K/mm3 (0.00-0.10); IMMATURE GRAN PERCENT AUTO 1 % (0-1); LYMPHOCYTES ABSOLUTE AUTO 1.62 K/mm3 (0.84-5.20); LYMPHOCYTES PERCENT AUTO 13 % (21-46); MONOCYTES ABSOLUTE AUTO 0.68 K/mm3 (0.16-1.47); MONOCYTES PERCENT AUTO 6 % (4-13); NEUTROPHILS ABSOLUTE AUTO 9.28 K/mm3 (1.96-9.15); NEUTROPHILS PERCENT AUTO 76 % (41-73)
[2021-05-19 09:05] LABS: Alanine Aminotransfer (ALT/SGP 42 U/L (12-78); Albumin, Blood 1.9 g/dL (3.4-5.0); Albumin/Globulin Ratio 0.5 (0.8-1.8); Alk Phos 55 U/L (50-136); Anion Gap 7 mmol/L (6-16); Aspartate Aminotrans (AST/SGOT 20 U/L (12-37); Bilirubin, Total 0.8 mg/dL (0.1-1.0); Blood Urea Nitrogen 7 mg/dL (8-24); Bun/Creatinine Ratio 13.8 (12.0-20.0); CO2, Blood 26 mmol/L (21-32); Calcium, Blood 8.4 mg/dL (8.5-10.1); Chloride, Blood 104 mmol/L (98-108); Creatinine, Blood 0.51 mg/dL (0.40-1.00); Glomerular Filtration Rate >60 (60-); Glucose, Blood 86 mg/dL (70-99); Magnesium, Blood 1.9 mg/dL (1.6-2.4); Phosphorus, Blood 2.6 mg/dL (2.5-4.9); Potassium, Blood 2.8 mmol/L (3.5-5.5); Sodium, Blood 137 mmol/L (136-145); Total Protein, Blood 5.9 g/dL (6.4-8.2)
[2021-05-19] MEDS ORDERED: CRANBERRY500 MG PO (15:22)
[2021-05-19] MEDS ORDERED: ONDA4ODT MM (15:22)
[2021-05-19] MEDS ORDERED: Norco 5-325 Ta1 EACH PO (15:22)
[2021-05-19] MEDS ORDERED: PANT40 PO (15:23)
[2021-05-19] MEDS ORDERED: POTCHL20ER PO (15:24)
--- NOTE | 2021-05-19 15:55 | NUR ---
DISCHARGE PT TAKING IN PO FLUIDS BUT NOT INTERESTED IN SOLID FOODS. STATES THE HOSPITAL FOOD TASTES WEIRD. STATES SHE WILL MAKE MORE OF AN EFFORT AT HOME FOR SOLIDS. STEADY GAIT. O2 SATS > 90% ON ROOM AIR. SCRIPTS FAXED & NORCO SCRIPT SENT w/ PT. ESCORTED OUT VIA W/C w/ SPOUSE AT SIDE.
== END 2021-05-19 16:06 | disposition home or self-care (01) | DRG 853 ==
LOC: ER 07:31 → SURS 09:20
PROVIDERS: Emergency Medicine; Family Medicine; Internal Medicine; Nurse Practitioner Acute Care; ADMIT Surgery
PROC: 3E02340 Introduction of Influenza Vaccine into Muscle, Percutaneous Approach (ICD-10-PCS; 2021-05-11)
PROC: 0D160ZA Bypass Stomach to Jejunum, Open Approach (ICD-10-PCS; principal; 2021-05-11 09:45)
PROC: 0DB70ZZ Excision of Stomach, Pylorus, Open Approach (ICD-10-PCS; 2021-05-11 09:45)
DX: A41.9 Sepsis, unspecified organism (principal); K25.5 Chronic or unspecified gastric ulcer with perforation; E87.6 Hypokalemia; Z20.822 Contact with and (suspected) exposure to COVID-19; I10 Essential (primary) hypertension; Z98.890 Other specified postprocedural states; Z79.899 Other long term (current) drug therapy; Z98.51 Tubal ligation status; Z90.710 Acquired absence of both cervix and uterus; Z88.8 Allergy status to other drugs, medicaments and biological substances; Z88.1 Allergy status to other antibiotic agents; R65.20 Severe sepsis without septic shock; K52.831 Collagenous colitis; D64.9 Anemia, unspecified; Z23 Encounter for immunization
CPT/HCPCS: 36415; 71045; 74177; 80048; 80053; 82533; 82728; 82947; 83540; 83550; 83605; 83690; 83735; 84100; 84145; 84443; 84484; 85014; 85018; 85025; 85027; 86850; 86900; 86901; 86923; 87040; 88305; 88342; 93005; 93010; 94640; 94761; 94762; 96365; 96375; 96376; 97110; 97116; 97162; 97530; 99285-25; A9270; C9113; J1100; J1170; J1650; J1885; J2001; J2250; J2310; J2405; J2543; J2550; J2704; J3010; J3480; J7030; J7050; J7060; J7120; J7626; P9016; Q9967; U0004

== ENCOUNTER 2021-05-23 11:36 | Emergency (ER) | payer OTHER ==
[~2021-05-23] VITALS: Ht 160 cm; Wt 68.0 kg
[~2021-05-23 11:36] MED LIST changes: +BUDESONIDE EC3 M5; +BUDESONIDE1 MG/2 M5 INH; +CRANBERRY500 MG PO; +PANT40 PO; +POTCHL20ER PO
[2021-05-23 12:01] LABS: BASOPHILS ABSOLUTE AUTO 0.06 K/mm3 (0.00-0.23); BASOPHILS PERCENT AUTO 1 % (0-2); EOSINOPHILS ABSOLUTE AUTO 0.64 K/mm3 (0.00-0.68); EOSINOPHILS PERCENT AUTO 7 % (0-6); Hematocrit 33.8 % (33.0-51.0); Hemoglobin 11.5 g/dL (11.5-16.0); IMMATURE GRAN ABSOLUTE AUTO 0.06 K/mm3 (0.00-0.10); IMMATURE GRAN PERCENT AUTO 1 % (0-1); LYMPHOCYTES ABSOLUTE AUTO 1.21 K/mm3 (0.84-5.20); LYMPHOCYTES PERCENT AUTO 12 % (21-46); MONOCYTES ABSOLUTE AUTO 0.81 K/mm3 (0.16-1.47); MONOCYTES PERCENT AUTO 8 % (4-13); Mean Corpuscular HGB 30.9 pg (26.0-34.0); Mean Corpuscular Volume 91 fL (80-100); Mean Platelet Volume 8.7 fL (9.1-12.4); NEUTROPHILS ABSOLUTE AUTO 6.96 K/mm3 (1.96-9.15); NEUTROPHILS PERCENT AUTO 72 % (41-73); Platelet Count 839 K/mm3 (150-400); RDW Coefficient Variation 14.4 % (11.7-14.2); Red Blood Cell Count 3.72 M/mm3 (3.80-5.20); White Blood Cell Count 9.74 K/mm3 (4.00-11.30)
[2021-05-23 12:24] LABS: Alanine Aminotransfer (ALT/SGP 31 U/L (12-78); Albumin, Blood 2.2 g/dL (3.4-5.0); Albumin/Globulin Ratio 0.4 (0.8-1.8); Alk Phos 61 U/L (50-136); Anion Gap 2 mmol/L (6-16); Aspartate Aminotrans (AST/SGOT 27 U/L (12-37); Bilirubin, Total 0.3 mg/dL (0.1-1.0); Blood Urea Nitrogen 5 mg/dL (8-24); Bun/Creatinine Ratio 7.3 (12.0-20.0); CO2, Blood 30 mmol/L (21-32); Calcium, Blood 9.3 mg/dL (8.5-10.1); Chloride, Blood 107 mmol/L (98-108); Creatinine, Blood 0.68 mg/dL (0.40-1.00); Globulin, Blood 4.9 g/dL (2.2-4.0); Glomerular Filtration Rate >60 (60-); Glucose, Blood 105 mg/dL (70-99); Potassium, Blood 3.7 mmol/L (3.5-5.5); Sodium, Blood 139 mmol/L (136-145); Total Protein, Blood 7.1 g/dL (6.4-8.2)
[2021-05-23 13:12] LABS: Source, Urine Clean Catch
[2021-05-23 13:14] LABS: Appearance, Urine Clear (Clear); Bilirubin, Urine Neg (Neg); Blood, Urine Neg (Neg); Color, Urine Yellow (P-Yellow); Glucose Qualitative, Urine Neg (Neg); Ketones, Urine Neg (Neg); Leukocyte Esterase, Urine Neg (Neg); Nitrite, Urine Neg (Neg); Protein, Urine Neg (Neg); Urobilinogen, Urine NORM (Normal)
[2021-05-23] MEDS ORDERED: PROM25 PO (15:25)
[2021-05-23] MEDS ORDERED: Roxicodone5 MG PO (15:25)
== END 2021-05-23 15:40 | disposition home or self-care (01) ==
LOC: ER 11:36
PROVIDERS: Emergency Medicine
DX: G89.18 Other acute postprocedural pain (principal); R10.11 Right upper quadrant pain; R11.0 Nausea; F17.210 Nicotine dependence, cigarettes, uncomplicated; Z88.8 Allergy status to other drugs, medicaments and biological substances; Z88.1 Allergy status to other antibiotic agents
CPT/HCPCS: 74177; 80053; 81003; 83690; 85025; 96374; 96375; 99284-25; A9270; J2270; J2405; J7120; Q9967

== ENCOUNTER 2021-05-28 21:29 | Emergency (ER) | payer OTHER ==
[~2021-05-28] VITALS: Ht 160 cm; Wt 68.0 kg
[~2021-05-28 21:29] MED LIST changes: +Roxicodone5 MG PO
== END 2021-05-28 23:35 | disposition home or self-care (01) ==
LOC: ER 21:29
DX: G89.18 Other acute postprocedural pain (principal); R10.9 Unspecified abdominal pain; R11.2 Nausea with vomiting, unspecified
CPT/HCPCS: 99283

== ENCOUNTER 2021-07-01 06:58 | Day surgery (SDC) | payer OTHER ==
[~2021-07-01] VITALS: Ht 160 cm; Wt 57.9 kg
[2021-07-01] MEDS ORDERED: ACET500 (07:24)
[2021-07-01] MEDS ORDERED: ATOR20 (07:24)
== END 2021-07-01 09:00 | disposition home or self-care (01) ==
LOC: ORSCSDS 06:58
PROVIDERS: Internal Medicine Gastroenterology
PROC: 0DBA8ZX Excision of Jejunum, Via Natural or Artificial Opening Endoscopic, Diagnostic (ICD-10-PCS; principal; 2021-07-01 08:15)
PROC: 0DB68ZX Excision of Stomach, Via Natural or Artificial Opening Endoscopic, Diagnostic (ICD-10-PCS; principal; 2021-07-01 08:15)
DX: R19.7 Diarrhea, unspecified (principal); Z98.84 Bariatric surgery status; Z86.010 Personal history of colon polyps; K44.9 Diaphragmatic hernia without obstruction or gangrene; F17.210 Nicotine dependence, cigarettes, uncomplicated; Z79.899 Other long term (current) drug therapy
CPT/HCPCS: 88305; 88342; J2704; J7120

== ENCOUNTER 2022-02-17 02:10 | Emergency (ER) | payer OTHER ==
[~2022-02-17] VITALS: Ht 160 cm; Wt 59.0 kg
[~2022-02-17 02:10] MED LIST changes: +ACET500; +ATOR20
[2022-02-17 03:19] LABS: Source, Urine Clean Catch
[2022-02-17 03:27] LABS: BASOPHILS ABSOLUTE AUTO 0.03 K/mm3 (0.00-0.23); BASOPHILS PERCENT AUTO 0 % (0-2); EOSINOPHILS ABSOLUTE AUTO 0.19 K/mm3 (0.00-0.68); EOSINOPHILS PERCENT AUTO 3 % (0-6); Hematocrit 37.3 % (33.0-51.0); Hemoglobin 12.7 g/dL (11.5-16.0); IMMATURE GRAN ABSOLUTE AUTO 0.01 K/mm3 (0.00-0.10); IMMATURE GRAN PERCENT AUTO 0 % (0-1); LYMPHOCYTES ABSOLUTE AUTO 0.39 K/mm3 (0.84-5.20); LYMPHOCYTES PERCENT AUTO 6 % (21-46); MONOCYTES ABSOLUTE AUTO 0.62 K/mm3 (0.16-1.47); MONOCYTES PERCENT AUTO 9 % (4-13); Mean Corpuscular HGB 31.6 pg (26.0-34.0); Mean Corpuscular Volume 93 fL (80-100); Mean Platelet Volume 8.9 fL (9.1-12.4); NEUTROPHILS PERCENT AUTO 83 % (41-73); Platelet Count 327 K/mm3 (150-400); RDW Coefficient Variation 13.4 % (11.7-14.2); RDW Standard Deviation 46.5 fL (35.1-46.3); Red Blood Cell Count 4.02 M/mm3 (3.80-5.20); White Blood Cell Count 7.04 K/mm3 (4.00-11.30)
[2022-02-17 03:33] LABS: Bilirubin, Urine Neg (Neg); Blood, Urine Neg (Neg); Glucose Qualitative, Urine Neg (Neg); Ketones, Urine Neg (Neg); Leukocyte Esterase, Urine Neg (Neg); Nitrite, Urine Neg (Neg); Protein, Urine Neg (Neg); Urobilinogen, Urine NORM (Normal)
[2022-02-17 03:47] LABS: Albumin, Blood 3.5 g/dL (3.4-5.0); Albumin/Globulin Ratio 1.1 (0.8-1.8); Bilirubin, Total 0.3 mg/dL (0.1-1.0); Bun/Creatinine Ratio 15.1 (12.0-20.0); Calcium, Blood 9.2 mg/dL (8.5-10.1); Creatinine, Blood 0.86 mg/dL (0.40-1.00); Globulin, Blood 3.2 g/dL (2.2-4.0); Total Protein, Blood 6.7 g/dL (6.4-8.2)
[2022-02-17 03:47] LABS: Appearance, Urine Clear (Clear); Color, Urine Yellow (P-Yellow)
[2022-02-17 03:47] LABS: Influenza A, PCR NEGATIVE (NEGATIVE); Influenza B, PCR NEGATIVE (NEGATIVE); Resp Syncytial Virus, PCR NEGATIVE (NEGATIVE); SARS-Cov-2 (COVID-19) PCR, MMC NEGATIVE (NEGATIVE)
== END 2022-02-17 05:07 | disposition home or self-care (01) ==
LOC: ER 02:10
PROVIDERS: Emergency Medicine
DX: R50.9 Fever, unspecified (principal); F17.210 Nicotine dependence, cigarettes, uncomplicated; Z88.1 Allergy status to other antibiotic agents; Z20.822 Contact with and (suspected) exposure to COVID-19; Z88.8 Allergy status to other drugs, medicaments and biological substances; Z79.899 Other long term (current) drug therapy
CPT/HCPCS: 0241U; 36415; 74177; 80053; 81003; 83690; 85025; 86308; A9270; J1885; Q9967

== ENCOUNTER 2022-09-23 22:51 | Emergency (ER) | payer OTHER ==
[~2022-09-23] VITALS: Ht 162.6 cm; Wt 72.6 kg
[2022-09-23 23:54] LABS: BASOPHILS ABSOLUTE AUTO 0.06 K/mm3 (0.00-0.23); BASOPHILS PERCENT AUTO 1 % (0-2); EOSINOPHILS ABSOLUTE AUTO 0.29 K/mm3 (0.00-0.68); EOSINOPHILS PERCENT AUTO 3 % (0-6); Hematocrit 38.4 % (33.0-51.0); Hemoglobin 13.7 g/dL (11.5-16.0); IMMATURE GRAN ABSOLUTE AUTO 0.02 K/mm3 (0.00-0.10); IMMATURE GRAN PERCENT AUTO 0 % (0-1); LYMPHOCYTES ABSOLUTE AUTO 3.25 K/mm3 (0.84-5.20); LYMPHOCYTES PERCENT AUTO 30 % (21-46); MONOCYTES ABSOLUTE AUTO 0.77 K/mm3 (0.16-1.47); MONOCYTES PERCENT AUTO 7 % (4-13); Mean Corpuscular HGB 32.9 pg (26.0-34.0); Mean Corpuscular HGB Conc 35.7 g/dL (31.5-36.5); Mean Corpuscular Volume 92 fL (80-100); Mean Platelet Volume 8.8 fL (9.1-12.4); NEUTROPHILS ABSOLUTE AUTO 6.53 K/mm3 (1.96-9.15); NEUTROPHILS PERCENT AUTO 60 % (41-73); Platelet Count 356 K/mm3 (150-400); RDW Standard Deviation 47.7 fL (35.1-46.3); Red Blood Cell Count 4.16 M/mm3 (3.80-5.20); White Blood Cell Count 10.92 K/mm3 (4.00-11.30)
[2022-09-24 00:27] LABS: Albumin, Blood 3.9 g/dL (3.4-5.0); Albumin/Globulin Ratio 1.2 (0.8-1.8); Bilirubin, Total 0.3 mg/dL (0.1-1.0); Bun/Creatinine Ratio 16.7 (12.0-20.0); Creatinine, Blood 0.78 mg/dL (0.40-1.00); Globulin, Blood 3.3 g/dL (2.2-4.0); Potassium, Blood 3.9 mmol/L (3.5-5.5); Total Protein, Blood 7.2 g/dL (6.4-8.2)
[2022-09-24] MEDS ORDERED: SUCR1 PO (01:54)
== END 2022-09-24 02:25 | disposition home or self-care (01) ==
LOC: ER 22:51
PROVIDERS: Emergency Medicine
DX: R10.10 Upper abdominal pain, unspecified (principal); R11.0 Nausea; F17.210 Nicotine dependence, cigarettes, uncomplicated
CPT/HCPCS: 36415; 74177; 80053; 83690; 85025; 96374-59; 96375; 96376; 99284-25; A9270; J1170; J2405; J7030; Q9967

== ENCOUNTER 2023-05-08 17:45 | Emergency (ER) | payer OTHER ==
[~2023-05-08] VITALS: Ht 160 cm; Wt 59.9 kg
[~2023-05-08 17:45] MED LIST changes: +SUCR1 PO
[2023-05-08 18:15] LABS: BASOPHILS ABSOLUTE AUTO 0.07 K/mm3 (0.00-0.23); BASOPHILS PERCENT AUTO 1 % (0-2); EOSINOPHILS ABSOLUTE AUTO 0.31 K/mm3 (0.00-0.68); EOSINOPHILS PERCENT AUTO 4 % (0-6); Hematocrit 35.5 % (33.0-51.0); Hemoglobin 12.6 g/dL (11.5-16.0); IMMATURE GRAN ABSOLUTE AUTO 0.02 K/mm3 (0.00-0.10); IMMATURE GRAN PERCENT AUTO 0 % (0-1); LYMPHOCYTES ABSOLUTE AUTO 2.38 K/mm3 (0.84-5.20); LYMPHOCYTES PERCENT AUTO 28 % (21-46); MONOCYTES ABSOLUTE AUTO 0.55 K/mm3 (0.16-1.47); MONOCYTES PERCENT AUTO 6 % (4-13); Mean Corpuscular HGB 32.6 pg (26.0-34.0); Mean Corpuscular HGB Conc 35.5 g/dL (31.5-36.5); Mean Corpuscular Volume 92 fL (80-100); Mean Platelet Volume 8.9 fL (9.1-12.4); NEUTROPHILS ABSOLUTE AUTO 5.31 K/mm3 (1.96-9.15); NEUTROPHILS PERCENT AUTO 62 % (41-73); Platelet Count 419 K/mm3 (150-400); RDW Coefficient Variation 13.3 % (11.7-14.2); RDW Standard Deviation 45.4 fL (35.1-46.3); Red Blood Cell Count 3.87 M/mm3 (3.80-5.20); White Blood Cell Count 8.64 K/mm3 (4.00-11.30)
[2023-05-08 18:41] LABS: Albumin, Blood 3.3 g/dL (3.4-5.0); Albumin/Globulin Ratio 1.1 (0.8-1.8); Bilirubin, Total 0.1 mg/dL (0.1-1.0); Bun/Creatinine Ratio 16.2 (12.0-20.0); Creatinine, Blood 0.86 mg/dL (0.40-1.00); Globulin, Blood 3.1 g/dL (2.2-4.0); Potassium, Blood 3.5 mmol/L (3.5-5.5); Total Protein, Blood 6.4 g/dL (6.4-8.2)
[2023-05-08] MEDS ORDERED: KLOR-CON 1010 ME9 PO (19:42)
[2023-05-08] MEDS ORDERED: PRAMIPEXOLE0.125 M1 PO (19:43)
[2023-05-08] MEDS ORDERED: PROM12.5S PR (19:43)
[2023-05-08] MEDS ORDERED: TOPI100 PO (19:43)
[2023-05-08] MEDS ORDERED: BUDESONIDE EC3 M5 PO (19:44)
[2023-05-08] MEDS ORDERED: ONDA4ODT MM ×2 (19:45→22:21)
[2023-05-08 22:00] VITALS: BP 124/60
== END 2023-05-08 22:34 | disposition home or self-care (01) ==
LOC: ER 17:45
PROVIDERS: Physician Assistant
DX: R11.2 Nausea with vomiting, unspecified (principal); F17.210 Nicotine dependence, cigarettes, uncomplicated
CPT/HCPCS: 74177; 80053; 83690; 83735; 85025; 96374-59; 96375-59; 96376-59; 99284-25; J2270; J2405; J7030; Q9967

== ENCOUNTER 2023-05-13 02:19 | Emergency (ER) | payer OTHER ==
[~2023-05-13] VITALS: Ht 160 cm; Wt 60.8 kg
[~2023-05-13 02:19] MED LIST changes: +BUDESONIDE EC3 M5 PO; +KLOR-CON 1010 ME9 PO; +PRAMIPEXOLE0.125 M1 PO; +PROM12.5S PR; +TOPI100 PO
[2023-05-13 02:58] LABS: BASOPHILS ABSOLUTE AUTO 0.06 K/mm3 (0.00-0.23); BASOPHILS PERCENT AUTO 0 % (0-2); EOSINOPHILS ABSOLUTE AUTO 0.21 K/mm3 (0.00-0.68); EOSINOPHILS PERCENT AUTO 1 % (0-6); Hematocrit 36.1 % (33.0-51.0); Hemoglobin 12.6 g/dL (11.5-16.0); IMMATURE GRAN ABSOLUTE AUTO 0.06 K/mm3 (0.00-0.10); IMMATURE GRAN PERCENT AUTO 0 % (0-1); LYMPHOCYTES ABSOLUTE AUTO 1.49 K/mm3 (0.84-5.20); LYMPHOCYTES PERCENT AUTO 8 % (21-46); MONOCYTES ABSOLUTE AUTO 1.15 K/mm3 (0.16-1.47); MONOCYTES PERCENT AUTO 6 % (4-13); Mean Corpuscular HGB 32.8 pg (26.0-34.0); Mean Corpuscular HGB Conc 34.9 g/dL (31.5-36.5); Mean Corpuscular Volume 94 fL (80-100); NEUTROPHILS PERCENT AUTO 85 % (41-73); Platelet Count 435 K/mm3 (150-400); RDW Coefficient Variation 13.7 % (11.7-14.2); RDW Standard Deviation 46.8 fL (35.1-46.3); Red Blood Cell Count 3.84 M/mm3 (3.80-5.20); White Blood Cell Count 19.67 K/mm3 (4.00-11.30)
[2023-05-13 03:37] LABS: Albumin, Blood 3.4 g/dL (3.4-5.0); Albumin/Globulin Ratio 1.4 (0.8-1.8); Bilirubin, Total 0.2 mg/dL (0.1-1.0); Bun/Creatinine Ratio 8.7 (12.0-20.0); Calcium, Blood 8.4 mg/dL (8.5-10.1); Creatinine, Blood 0.92 mg/dL (0.40-1.00); Globulin, Blood 2.5 g/dL (2.2-4.0); Magnesium, Blood 1.8 mg/dL (1.6-2.4); Phosphorus, Blood 3.5 mg/dL (2.5-4.9); Potassium, Blood 3.4 mmol/L (3.5-5.5); Thyroid Stimulating Hormone 2.63 uIU/mL (0.360-4.800); Total Protein, Blood 5.9 g/dL (6.4-8.2)
[2023-05-13 05:00] VITALS: BP 104/53
[2023-05-13] MEDS ORDERED: METO5A PO (05:08)
== END 2023-05-13 05:25 | disposition home or self-care (01) ==
LOC: ER 02:19
PROVIDERS: Emergency Medicine
DX: R11.2 Nausea with vomiting, unspecified (principal); R10.9 Unspecified abdominal pain; E86.0 Dehydration; F17.210 Nicotine dependence, cigarettes, uncomplicated; K52.831 Collagenous colitis; Z88.1 Allergy status to other antibiotic agents; Z79.899 Other long term (current) drug therapy; Z87.11 Personal history of peptic ulcer disease
CPT/HCPCS: 71046; 80053; 83605; 83690; 83735; 84100; 84443; 84484; 85025; 93005; 93010; 96361; 96374; 99285-25; J2765; J7030; J7120

== ENCOUNTER 2023-05-14 12:45 | Day surgery (SDC) | payer OTHER ==
[~2023-05-14] VITALS: Ht 160 cm; Wt 55.7 kg
[~2023-05-14 12:45] MED LIST changes: +METO5A PO
[2023-05-14 15:53] VITALS: BP 106/54
--- NOTE | 2023-05-14 15:55 | NUR ---
05/14/23 1555 Sara Hubbard IV AT 1530 [facility]
== END 2023-05-14 15:49 | disposition home or self-care (01) ==
LOC: ORSCSDS 12:45
PROVIDERS: Internal Medicine Gastroenterology
PROC: 0DB68ZX Excision of Stomach, Via Natural or Artificial Opening Endoscopic, Diagnostic (ICD-10-PCS; principal; 2023-05-14 14:15)
PROC: 0DBA8ZX Excision of Jejunum, Via Natural or Artificial Opening Endoscopic, Diagnostic (ICD-10-PCS; principal; 2023-05-14 14:15)
DX: R11.2 Nausea with vomiting, unspecified (principal); Z98.84 Bariatric surgery status; K52.9 Noninfective gastroenteritis and colitis, unspecified; K25.9 Gastric ulcer, unspecified as acute or chronic, without hemorrhage or perforation; F17.210 Nicotine dependence, cigarettes, uncomplicated; Z79.899 Other long term (current) drug therapy
CPT/HCPCS: 88305; 88342; J0461; J2001; J2405; J2704; J7120

== ENCOUNTER 2024-06-02 00:04 | Inpatient (IN) | payer SELFPAY ==
[~2024-06-02] VITALS: Ht 160 cm; Wt 54.4 kg
[~2024-06-02 00:04] MED LIST changes: -ATOR20; +ATOR20 PO; +ERGO400; +IMITREX50 M2 PO; +PRAM.125; +Potassium Chlo20 ME1 PO; +Pulmicort1 MG/2 ML INH; +Vitamin B Comple1 EA
[2024-06-02 00:39] LABS: BASOPHILS ABSOLUTE AUTO 0.05 K/mm3 (0.00-0.23); BASOPHILS PERCENT AUTO 0 % (0-2); EOSINOPHILS ABSOLUTE AUTO 0.41 K/mm3 (0.00-0.68); EOSINOPHILS PERCENT AUTO 3 % (0-6); Hematocrit 40.5 % (33.0-51.0); IMMATURE GRAN ABSOLUTE AUTO 0.05 K/mm3 (0.00-0.10); IMMATURE GRAN PERCENT AUTO 0 % (0-1); LYMPHOCYTES ABSOLUTE AUTO 1.98 K/mm3 (0.84-5.20); LYMPHOCYTES PERCENT AUTO 14 % (21-46); MONOCYTES ABSOLUTE AUTO 0.83 K/mm3 (0.16-1.47); MONOCYTES PERCENT AUTO 6 % (4-13); Mean Corpuscular HGB Conc 34.6 g/dL (31.5-36.5); Mean Corpuscular Volume 93 fL (80-100); NEUTROPHILS ABSOLUTE AUTO 10.39 K/mm3 (1.96-9.15); NEUTROPHILS PERCENT AUTO 76 % (41-73); Platelet Count 425 K/mm3 (150-400); RDW Coefficient Variation 14.5 % (11.7-14.2); RDW Standard Deviation 49.1 fL (35.1-46.3); Red Blood Cell Count 4.38 M/mm3 (3.80-5.20); White Blood Cell Count 13.71 K/mm3 (4.00-11.30)
[2024-06-02 00:59] LABS: Albumin, Blood 3.6 g/dL (3.4-5.0); Bilirubin, Total 0.2 mg/dL (0.1-1.0); Bun/Creatinine Ratio 20.3 (12.0-20.0); Calcium, Blood 9.7 mg/dL (8.5-10.1); Creatinine, Blood 0.89 mg/dL (0.40-1.00); Globulin, Blood 3.6 g/dL (2.2-4.0); Potassium, Blood 4.3 mmol/L (3.5-5.5); Total Protein, Blood 7.2 g/dL (6.4-8.2)
[2024-06-02 01:23] LABS: Influenza A, PCR NEGATIVE (NEGATIVE); Influenza B, PCR NEGATIVE (NEGATIVE); Resp Syncytial Virus, PCR NEGATIVE (NEGATIVE); SARS-Cov-2 (COVID-19) PCR, MMC NEGATIVE (NEGATIVE)
[2024-06-02] MEDS ORDERED: Albuterol 2.5 MG/3 ML VIAL INH SCH ×2 (01:50→04:05)
[2024-06-02] MEDS ORDERED: Ipratropium/Albuterol SulF 2.5-0.5MG/3 ML Amp INH ONE (01:50)
[2024-06-02] MEDS ORDERED: Azithromycin 250 MG Tab PO ONE (01:50)
[2024-06-02] MEDS ORDERED: PredniSONE 20 MG Tab PO ONE (01:50)
[2024-06-02] MEDS ORDERED: Ipratropium/Albuterol SulF 2.5-0.5MG/3 ML Amp INH SCH (05:30)
[2024-06-02] MEDS ORDERED: FLU VACC TS2024-25(6MOS UP)/PF 45 MCG/0.5 ML SYRINGE IM ONE (05:30)
[2024-06-02] MEDS ORDERED: Azithromycin 500 MG in NS 250 ML IV SCH (05:47)
[2024-06-02] MEDS ORDERED: Promethazine HCl 12.5 MG Supp PR PRN (06:10)
[2024-06-02] MEDS ORDERED: Pramipexole DI-HCL 0.125 MG Tab PO ONE (07:00)
[2024-06-02] MEDS ORDERED: ANORO ELLIPTA1 EAC1 INH (07:20)
[2024-06-02] MEDS ORDERED: Albuterol 2.5 MG/3 ML VIAL INH PRN (07:30)
[2024-06-02] MEDS ORDERED: Mometasone/Formoterol MDI 200/5 mcg 13 GM INH SCH (07:30)
[2024-06-02] MEDS ORDERED: Melatonin 5 MG Tablet PO PRN (07:55)
[2024-06-02] MEDS ORDERED: Ondansetron 4 MG SoluTab MM PRN (07:55)
[2024-06-02] MEDS ORDERED: Acetaminophen 325 MG TABLET PO PRN (07:55)
[2024-06-02] MEDS ORDERED: Docusate Sodium/Senna 1 Tab PO PRN (07:55)
[2024-06-02] MEDS ORDERED: Atorvastatin 10 MG Tab PO SCH (09:00)
[2024-06-02] MEDS ORDERED: Lactobacil 2-S.Thermo-Bifido 1 1 Cap PO SCH (09:00)
[2024-06-02] MEDS ORDERED: GuaiFENesin 600 MG TabCR PO SCH (09:00)
[2024-06-02] MEDS ORDERED: PredniSONE 20 MG Tab PO SCH (09:00)
[2024-06-02] MEDS ORDERED: FLUTICASONE-SA1 EAC2 INH (11:30)
[2024-06-02] MEDS ORDERED: PRED20 PO (11:30)
[2024-06-02 11:48] VITALS: BP 130/61
[2024-06-02] MEDS ORDERED: Pramipexole DI-HCL 0.125 MG Tab PO SCH (21:00)
[2024-06-03] MEDS ORDERED: Pantoprazole Sodium 40 MG Tab PO SCH (06:00)
[2024-06-03] MEDS ORDERED: Enoxaparin 40 MG/0.4 ML SYR SC SCH (09:00)
== END 2024-06-02 11:48 | disposition home or self-care (01) | DRG 191 ==
LOC: ER 00:04 → ERHOLD 05:23
PROVIDERS: Student in an Organized Health Care Education/Training Program; ADMIT Student in an Organized Health Care Education/Training Program
DX: J44.1 Chronic obstructive pulmonary disease with (acute) exacerbation (principal); J45.901 Unspecified asthma with (acute) exacerbation; Z79.51 Long term (current) use of inhaled steroids; Z87.11 Personal history of peptic ulcer disease; F17.210 Nicotine dependence, cigarettes, uncomplicated; D75.839 Thrombocytosis, unspecified; Z66 Do not resuscitate; Z71.6 Tobacco abuse counseling; Z88.1 Allergy status to other antibiotic agents; Z87.19 Personal history of other diseases of the digestive system; Z90.49 Acquired absence of other specified parts of digestive tract; Z98.51 Tubal ligation status; Z98.890 Other specified postprocedural states; Z79.899 Other long term (current) drug therapy; Z90.710 Acquired absence of both cervix and uterus
CPT/HCPCS: 0241U; 71046; 80053; 83880; 84484; 85025; 94640; 94644; 94645; 94664; 99285-25; A9270; J0456; J7050; J7512

== ENCOUNTER → 2024-11-01 | Outpatient (CLI) | payer OTHER ==
[~2024-11-01] MED LIST changes: +CAPSAICIN TOP; +FLUTICASONE-SA1 EAC2 INH
[2024-11-07 11:19] LABS: OVA AND PARASITE,FECAL INTERP Negative (Negative)
== END ==
LOC: LAB SHORT 11:40 → LAB 11:40
PROVIDERS: Nurse Practitioner Family
DX: R10.9 Unspecified abdominal pain (principal)
CPT/HCPCS: 87177; 87209

== ENCOUNTER 2024-11-03 19:17 | Emergency (ER) | payer OTHER ==
[~2024-11-03] VITALS: Ht 160 cm; Wt 55.3 kg
[~2024-11-03 19:17] MED LIST changes: -CAPSAICIN TOP
[2024-11-03 20:07] LABS: BASOPHILS ABSOLUTE AUTO 0.09 K/mm3 (0.00-0.23); BASOPHILS PERCENT AUTO 1 % (0-2); EOSINOPHILS ABSOLUTE AUTO 0.61 K/mm3 (0.00-0.68); EOSINOPHILS PERCENT AUTO 6 % (0-6); Hemoglobin 11.8 g/dL (11.5-16.0); IMMATURE GRAN ABSOLUTE AUTO 0.03 K/mm3 (0.00-0.10); IMMATURE GRAN PERCENT AUTO 0 % (0-1); LYMPHOCYTES ABSOLUTE AUTO 2.22 K/mm3 (0.84-5.20); LYMPHOCYTES PERCENT AUTO 22 % (21-46); MONOCYTES ABSOLUTE AUTO 0.64 K/mm3 (0.16-1.47); MONOCYTES PERCENT AUTO 6 % (4-13); Mean Corpuscular HGB 31.9 pg (26.0-34.0); Mean Corpuscular HGB Conc 33.7 g/dL (31.5-36.5); Mean Corpuscular Volume 95 fL (80-100); Mean Platelet Volume 8.9 fL (9.1-12.4); NEUTROPHILS ABSOLUTE AUTO 6.48 K/mm3 (1.96-9.15); NEUTROPHILS PERCENT AUTO 64 % (41-73); Platelet Count 462 K/mm3 (150-400); RDW Coefficient Variation 13.7 % (11.7-14.2); RDW Standard Deviation 47.8 fL (35.1-46.3); White Blood Cell Count 10.07 K/mm3 (4.00-11.30)
[2024-11-03 20:08] LABS: Source, Urine Clean Catch
[2024-11-03 20:11] LABS: Appearance, Urine Clear (Clear); Bilirubin, Urine Neg (Neg); Blood, Urine Neg (Neg); Glucose Qualitative, Urine Neg (Neg); Ketones, Urine Neg (Neg); Leukocyte Esterase, Urine Neg (Neg); Nitrite, Urine Neg (Neg); Protein, Urine Neg (Neg); Urobilinogen, Urine NORM (Normal)
[2024-11-03 20:20] LABS: Color, Urine Pale Yellow (P-Yellow)
[2024-11-03 20:28] LABS: Albumin, Blood 3.3 g/dL (3.4-5.0); Bilirubin, Total 0.2 mg/dL (0.1-1.0); Bun/Creatinine Ratio 11.4 (12.0-20.0); Calcium, Blood 9.5 mg/dL (8.5-10.1); Creatinine, Blood 0.7 mg/dL (0.40-1.00); Globulin, Blood 3.2 g/dL (2.2-4.0); Potassium, Blood 3.9 mmol/L (3.5-5.5); Total Protein, Blood 6.5 g/dL (6.4-8.2)
[2024-11-03] MEDS ORDERED: Ondansetron HCl 2 MG / ML 2ML Vial IV ONE (22:00)
[2024-11-03] MEDS ORDERED: Morphine Sulfate 4 MG/1 ML Injection IV ONE (22:00)
[2024-11-03] MEDS ORDERED: Lidocaine 2% Viscous Soln 15 ML UDC PO ONE (23:20)
[2024-11-03] MEDS ORDERED: Mag Hydrox/AL Hydrox/Simeth 30 ML UDC PO ONE (23:25)
[2024-11-04 00:06] LABS: Influenza A, PCR NEGATIVE (NEGATIVE); Influenza B, PCR NEGATIVE (NEGATIVE); Resp Syncytial Virus, PCR NEGATIVE (NEGATIVE); SARS-Cov-2 (COVID-19) PCR, MMC NEGATIVE (NEGATIVE)
[2024-11-04 00:30] VITALS: BP 126/73
[2024-11-04] MEDS ORDERED: CAPSAICIN TOP (00:36)
[2024-11-04] MEDS ORDERED: RX Prepack 6 Tabs Oxycodone 5mg UD ONE (00:40)
== END 2024-11-04 00:47 | disposition home or self-care (01) ==
LOC: ER 19:17
PROVIDERS: Student in an Organized Health Care Education/Training Program
DX: K52.9 Noninfective gastroenteritis and colitis, unspecified (principal); K27.9 Peptic ulcer, site unspecified, unspecified as acute or chronic, without hemorrhage or perforation; Z88.1 Allergy status to other antibiotic agents; Z79.899 Other long term (current) drug therapy; J44.9 Chronic obstructive pulmonary disease, unspecified; E78.5 Hyperlipidemia, unspecified; F17.210 Nicotine dependence, cigarettes, uncomplicated
CPT/HCPCS: 0241U; 74177; 80053; 81003; 83690; 85025; 93005; 93010; 96374-59; 96375; 99284-25; A9270; J2270; J2405; Q9967

== ENCOUNTER 2025-01-31 07:38 | Day surgery (SDC) | payer OTHER ==
[~2025-01-31] VITALS: Ht 160 cm; Wt 53.5 kg
[~2025-01-31 07:38] MED LIST changes: +CAPSAICIN TOP
[2025-01-31] MEDS ORDERED: TYLENOL (07:55)
[2025-01-31] MEDS ORDERED: CARAFATE1 GM (07:57)
[2025-01-31] MEDS ORDERED: LOPE2C (07:57)
[2025-01-31] MEDS ORDERED: ONDA4ODT (07:57)
[2025-01-31] MEDS ORDERED: Ipratropium/Albuterol SulF 2.5-0.5MG/3 ML Amp ONE (08:23)
--- NOTE | 2025-01-31 08:31 | NUR ---
01/31/25 0831 Ely Baltazar WHEEZES NOTED IN RIGHT LUNGS. BREATHING TREATMENT ORDERED AND GIVEN IN PRE-OP.
[2025-01-31 10:13] VITALS: BP 125/62
== END 2025-01-31 09:55 | disposition home or self-care (01) ==
LOC: ORSCSDS 07:38
PROVIDERS: Specialist
PROC: 0DBE8ZX Excision of Large Intestine, Via Natural or Artificial Opening Endoscopic, Diagnostic (ICD-10-PCS; principal; 2025-01-31 08:45)
PROC: 0DB58ZX Excision of Esophagus, Via Natural or Artificial Opening Endoscopic, Diagnostic (ICD-10-PCS; principal; 2025-01-31 08:45)
PROC: 0DB98ZX Excision of Duodenum, Via Natural or Artificial Opening Endoscopic, Diagnostic (ICD-10-PCS; principal; 2025-01-31 08:45)
PROC: 0DB68ZX Excision of Stomach, Via Natural or Artificial Opening Endoscopic, Diagnostic (ICD-10-PCS; principal; 2025-01-31 08:45)
DX: R93.3 Abnormal findings on diagnostic imaging of other parts of digestive tract (principal); K25.9 Gastric ulcer, unspecified as acute or chronic, without hemorrhage or perforation; K21.9 Gastro-esophageal reflux disease without esophagitis; Z93.4 Other artificial openings of gastrointestinal tract status; K44.9 Diaphragmatic hernia without obstruction or gangrene; K29.70 Gastritis, unspecified, without bleeding; K52.831 Collagenous colitis; Z86.0100 Personal history of colon polyps, unspecified; F17.210 Nicotine dependence, cigarettes, uncomplicated; Z98.84 Bariatric surgery status; Z79.899 Other long term (current) drug therapy
CPT/HCPCS: 88305; 88341; 88342; J2704; J7120

== ENCOUNTER → 2025-05-22 | Outpatient (CLI) | payer OTHER ==
[~2025-05-22] MED LIST changes: +CARAFATE1 GM; +LOPE2C; +ONDA4ODT; +TYLENOL
[2025-05-26 11:37] LABS: CALPROTECTIN,FECAL 106 ug/g (<=49)
== END | disposition home or self-care (01) ==
LOC: LAB SHORT 11:30 → LAB 11:30
PROVIDERS: Physician Assistant Medical
DX: R93.3 Abnormal findings on diagnostic imaging of other parts of digestive tract (principal)
CPT/HCPCS: 83993